=== PATIENT | male | born 1975 | race African-American/Black ===

== ENCOUNTER 2017-04-16 02:06 | Inpatient (IN) | payer OTHER ==
[~2017-04-16] VITALS: Ht 185.4 cm; Wt 97.5 kg
[2017-04-16] VITALS (7 sets, daily range): BP systolic 118–156; BP diastolic 60–84; PULSE 70–120; RESP 18–19; TEMP 96.4–97.8; O2SAT 99–100
[2017-04-16] MEDS ORDERED: SODIUM CHLOR 0.9% 1000 ML INJ 1,000 ML IV ONE ×3 (02:15→04:30)
[2017-04-16] MEDS ORDERED: MIDAZOLAM HCL 2 MG/2 ML VIAL IV PUSH ONE (02:15)
[2017-04-16] MEDS ORDERED: LORazepam 2 MG/ML VIAL IV PUSH ONE (02:15)
[2017-04-16 02:35] LABS: AUTOMATED NEUTROPHIL # 20.4 TH/MM3 (1.8-7.7); BASOPHIL # 0.1 TH/MM3 (0-0.2); BASOPHIL % 0.4 % (0.0-2.0); HEMATOCRIT 44.3 % (39.0-51.0); LYMPH % 3.8 % (9.0-44.0); LYMPHOCYTE # 0.9 TH/MM3 (1.0-4.8); MEAN CELL VOLUME 91.2 FL (80.0-100.0); MEAN CORPUSCULAR HEMOGLOBIN 31.5 PG (27.0-34.0); MEAN CORPUSCULAR HGB CONC 34.5 % (32.0-36.0); MONO % 7.5 % (0.0-8.0); NEUT % 88.3 % (16.0-70.0); PLATELET COUNT 385 TH/MM3 (150-450); RED BLOOD COUNT 4.85 MIL/MM3 (4.50-5.90); RED CELL DISTRIBUTION WIDTH 14.2 % (11.6-17.2); WHITE BLOOD COUNT 23.1 TH/MM3 (4.0-11.0)
[2017-04-16 02:44] LABS: HEMO FLAGS AUTO DIFF
[2017-04-16 02:48] LABS: ALT (GPT) 125 U/L (12-78); ANION GAP 15 MEQ/L (5-15); AST (GOT) 139 U/L (15-37); BICARBONATE 22.4 MEQ/L (21.0-32.0); BLOOD UREA NITROGEN 23 MG/DL (7-18); CHLORIDE 97 MEQ/L (98-107); GLOMERULAR FILTRATION RATE 20 ML/MIN (>89); POTASSIUM 4.6 MEQ/L (3.5-5.1); SODIUM (NA) 134 MEQ/L (136-145)
[2017-04-16 03:02] LABS: ALKALINE PHOSPHATASE 94 U/L (45-117); CREATINE KINASE 4136 U/L (39-308); TOTAL BILIRUBIN ADULT 1.8 MG/DL (0.2-1.0)
[2017-04-16 03:17] LABS: CKMB 20.7 NG/ML (0.5-3.6)
[2017-04-16 04:06] LABS: SCAN/DIFF AUTO DIFF CONFIRMED
--- NOTE | 2017-04-16 04:12 | PD ---
HPI Chief Complaint: OD/ Ingestion Time Seen by Provider: 02:14 Travel History International Travel<30 days: No Contact w/Intl Traveler<30days: No Traveled to known affect area: No History of Present Illness HPI Patient is a 41-year-old male brought in by police for medical clearance. Please a they found him in the middle of the street. He was apparently resisting arrest. He admits to using Namita tonight. He does not provide any other history. [facility] Past Medical History Medical History: Unable to Obtain Past Surgical History Surgical History: Unable to Obtain Social History Alcohol Use: No (UNKNOWN) Tobacco Use: No (UNKNOWN ) Substance Use: Yes (UNKNOWN ) Allergies-Medications (Allergen,Severity, Reaction): Coded Allergies: No Known Allergies (Unverified , 04/16/17) Review of Systems ROS Limitations: Intoxication Physical Exam Narrative GENERAL: Awake and alert, agitated. SKIN: Focused skin assessment warm/dry. Abrasion to the right palm. HEAD: Atraumatic. Normocephalic. EYES: Pupils equal and round and reactive. No scleral icterus. Bilateral conjunctival injection. ENT: Mucous membranes pink and moist. NECK: Trachea midline. No JVD. CARDIOVASCULAR: Tachycardia. No murmur appreciated. RESPIRATORY: No accessory muscle use. Clear to auscultation. Breath sounds equal bilaterally. GASTROINTESTINAL: Abdomen soft, non-tender, nondistended. MUSCULOSKELETAL: No obvious deformities. No clubbing. No cyanosis. No edema. NEUROLOGICAL: Awake and alert. No obvious cranial nerve deficits. Motor grossly within normal limits. Normal speech. PSYCHIATRIC: Appropriate mood and affect; insight and judgment normal. Data Data Last Documented VS Vital Signs Date Time Temp Pulse Resp B/P (MAP) Pulse Ox O2 Delivery O2 Flow Rate FiO2 04/16/17 04:02 107 18 99 04/16/17 02:40 97.8 156/84 (108) Orders Orders Iv Access Insert/Monitor (04/16/17 02:14) Complete Blood Count With Diff (04/16/17 02:14) Comprehensive Metabolic Panel (04/16/17 02:14) Creatine Kinase (Cpk) (04/16/17 02:14) Midazolam Inj (Versed Inj) (04/16/17 02:15) Lorazepam Inj (Ativan Inj) (04/16/17 02:15) Sodium Chlor 0.9% 1000 Ml Inj (Ns 1000 M (04/16/17 02:15) Drug Screen, Random Urine (04/16/17 02:30) CKMB (04/16/17 02:25) CKMB% (04/16/17 02:25) Sodium Chlor 0.9% 1000 Ml Inj (Ns 1000 M (04/16/17 03:45) Labs Laboratory Tests Test 04/16/17 02:25 04/16/17 02:35 White Blood Count 23.1 TH/MM3 Red Blood Count 4.85 MIL/MM3 Hemoglobin 15.3 GM/DL Hematocrit 44.3 % Mean Corpuscular Volume 91.2 FL Mean Corpuscular Hemoglobin 31.5 PG Mean Corpuscular Hemoglobin Concent 34.5 % Red Cell Distribution Width 14.2 % Platelet Count 385 TH/MM3 Mean Platelet Volume 6.6 FL Neutrophils (%) (Auto) 88.3 % Lymphocytes (%) (Auto) 3.8 % Monocytes (%) (Auto) 7.5 % Eosinophils (%) (Auto) 0.0 % Basophils (%) (Auto) 0.4 % Neutrophils # (Auto) 20.4 TH/MM3 Lymphocytes # (Auto) 0.9 TH/MM3 Monocytes # (Auto) 1.7 TH/MM3 Eosinophils # (Auto) 0.0 TH/MM3 Basophils # (Auto) 0.1 TH/MM3 CBC Comment AUTO DIFF Differential Comment AUTO DIFF CONFIRMED Blood Urea Nitrogen 23 MG/DL Creatinine 3.40 MG/DL Random Glucose 71 MG/DL Total Protein 9.9 GM/DL Albumin 5.1 GM/DL Calcium Level 10.1 MG/DL Alkaline Phosphatase 94 U/L Aspartate Amino Transf (AST/SGOT) 139 U/L Alanine Aminotransferase (ALT/SGPT) 125 U/L Total Bilirubin 1.8 MG/DL Sodium Level 134 MEQ/L Potassium Level 4.6 MEQ/L Chloride Level 97 MEQ/L Carbon Dioxide Level 22.4 MEQ/L Anion Gap 15 MEQ/L Estimat Glomerular Filtration Rate 20 ML/MIN Total Creatine Kinase 4136 U/L Creatine Kinase MB 20.7 NG/ML Creatine Kinase MB % 0.5 % Urine Opiates Screen NEG Urine Barbiturates Screen NEG Urine Amphetamines Screen NEG Urine Benzodiazepines Screen NEG Urine Cocaine Screen NEG Urine Cannabinoids Screen POS MDM Medical Decision Making Medical Screen Exam Complete: Yes Emergency Medical Condition: Yes Differential Diagnosis Rhabdomyolysis versus intoxication versus dehydration Narrative Course Patient is 41-year-old male brought in by police after he was found in the middle of the street. Admits to using Namita tonsamantha. Exam shows tachycardia. Patient given Ativan and Versed. IV established, labs sent. Labs concerning for CK over 4000 and a creatinine of 3.04. Patient given 2 L of IV fluids. He'll be admitted for rhabdomyolysis with acute kidney injury. Diagnosis Primary Impression: Rhabdomyolysis Qualified Codes: M62.82 - Rhabdomyolysis Additional Impression: DEANNA (acute kidney injury) Admitting Information Admitting Physician Requests: Admit Emelyn Vences MD Apr 16, 2017 04:12
[2017-04-16] MEDS ORDERED: LACTULOSE SYRUP 20 GM/30 ML CUP PO PRN (04:30)
[2017-04-16] MEDS ORDERED: ONDANSETRON HCL 4 MG/2 ML VIAL IVP PRN (04:30)
[2017-04-16] MEDS ORDERED: ACETAMINOPHEN 325 MG TAB PO PRN (04:30)
[2017-04-16] MEDS ORDERED: BISACODYL 10 MG SUPP RECTAL PRN (04:30)
[2017-04-16] MEDS ORDERED: SENNOSIDES 8.6 MG TAB PO PRN (04:30)
[2017-04-16] MEDS ORDERED: MAGNESIUM HYDROXIDE SUSP 30 ML CUP PO PRN (04:30)
[2017-04-16] MEDS: SODIUM CHLOR 0.9% 1000 ML INJ 1,000 ML IV SCH ×3 (04:30→23:01)
[2017-04-16] MEDS ORDERED: SODIUM CHLORIDE 0.9% FLUSH 10 ML FLUSH IV FLUSH PRN (04:30)
--- NOTE | 2017-04-16 04:47 | HHI.HP ---
HPI Service [facility] Primary Care Physician No Primary Care Physician Admission Diagnosis rhabdomyolisis with DEANNA Diagnoses: (1) Drug ingestion Diagnosis: Principal (2) Rhabdomyolysis Diagnosis: Principal (3) DEANNA (acute kidney injury) Diagnosis: Principal (4) Leukocytosis Diagnosis: Principal Travel History International Travel<30 Days: No Contact w/Intl Traveler <30 Da: No Traveled to Known Affected Are: No History of Present Illness This is a 41-year-old male with no apparent PMH was brought to the ER by Police after he was found standing in middle of the street after ingesting unknown drug. Pt resisting arrest, currently under Police Custody. Pt later admitted to using Namita. On arrival, BP 156/84, HR 120, O2 sat 99% on RA, Afebrile. WBC 23.1. Creatinine 3.40, no previous labs for comparison. LFTs mildly elevated. CPK 4136. Urine Drug Screen positive for Marijuana. Significant agitation while in ER requiring Ativan/Versed. Review of Systems Except as stated in HPI: all other systems reviewed are Neg ROS: Unable to obtain as patient uncooperative. Past Family Social History Past Medical History PMH: Unknown Past Surgical History PAST SURGICAL HISTORY: Unknown Allergies: Coded Allergies: No Known Allergies (Unverified , 04/16/17) Family History PAST FAMILY HISTORY: Unknown Social History PAST SOCIAL HISTORY: Unknown Physical Exam Vital Signs Vital Signs Date Time Temp Pulse Resp B/P (MAP) Pulse Ox O2 Delivery O2 Flow Rate FiO2 04/16/17 04:02 107 18 99 04/16/17 02:40 97.8 120 18 156/84 (108) 99 Physical Exam PE: GENERAL: Middle-aged white male in restraints. Police at bedside. HEENT: PERRLA, EOMI. No scleral icterus or conjunctival pallor. No lid lag or facial droop. CARDIOVASCULAR: Regular rate and rhythm. No obvious murmurs to auscultation. No chest tenderness to palpation. RESPIRATORY: No obvious rhonchi or wheezing. Clear to auscultation. Breath sounds equal bilaterally. GASTROINTESTINAL: Abdomen soft, non-tender, nondistended. BS normal. MUSCULOSKELETAL: Extremities without clubbing, cyanosis, or edema. No obvious deformities. NEUROLOGICAL: Awake, alert and oriented x4. No focal neurologic deficits. Moving both upper and lower extremities spontaneously. Laboratory Laboratory Tests Test 04/16/17 02:25 04/16/17 02:35 White Blood Count 23.1 Red Blood Count 4.85 Hemoglobin 15.3 Hematocrit 44.3 Mean Corpuscular Volume 91.2 Mean Corpuscular Hemoglobin 31.5 Mean Corpuscular Hemoglobin Concent 34.5 Red Cell Distribution Width 14.2 Platelet Count 385 Mean Platelet Volume 6.6 Neutrophils (%) (Auto) 88.3 Lymphocytes (%) (Auto) 3.8 Monocytes (%) (Auto) 7.5 Eosinophils (%) (Auto) 0.0 Basophils (%) (Auto) 0.4 Neutrophils # (Auto) 20.4 Lymphocytes # (Auto) 0.9 Monocytes # (Auto) 1.7 Eosinophils # (Auto) 0.0 Basophils # (Auto) 0.1 CBC Comment AUTO DIFF Differential Comment AUTO DIFF CONFIRMED Blood Urea Nitrogen 23 Creatinine 3.40 Random Glucose 71 Total Protein 9.9 Albumin 5.1 Calcium Level 10.1 Alkaline Phosphatase 94 Aspartate Amino Transf (AST/SGOT) 139 Alanine Aminotransferase (ALT/SGPT) 125 Total Bilirubin 1.8 Sodium Level 134 Potassium Level 4.6 Chloride Level 97 Carbon Dioxide Level 22.4 Anion Gap 15 Estimat Glomerular Filtration Rate 20 Total Creatine Kinase 4136 Creatine Kinase MB 20.7 Creatine Kinase MB % 0.5 Urine Opiates Screen NEG Urine Barbiturates Screen NEG Urine Amphetamines Screen NEG Urine Benzodiazepines Screen NEG Urine Cocaine Screen NEG Urine Cannabinoids Screen POS Result Diagram: 04/16/1722404/16/17224 Caprini VTE Risk Assessment Caprini VTE Risk Assessment: No/Low Risk (score <= 1) Caprini Risk Assessment Model Point Value = 1 Point Value = 2 Point Value = 3 Point Value = 5 Age 41-60 Minor surgery BMI > 25 kg/m2 Swollen legs Varicose veins or History of unexplained or recurrent spontaneous Oral contraceptives or hormone replacement Sepsis (< 1 month) Serious lung disease, including pneumonia (< 1 month) Abnormal pulmonary function Acute myocardial infarction Congestive heart failure (< 1 month) History of inflammatory bowel disease Medical patient at bed rest Age 61-74 Arthroscopic surgery Major open surgery (> 45 min) Laparoscopic surgery (> 45 min) Malignancy Confined to bed (> 72 hours) Immobilizing plaster cast Central venous access Age >= 75 History of VTE Family history of VTE Factor V Leiden Prothrombin [id number] Lupus anticoagulant Anticardiolipin antibodies Elevated serum homocysteine Heparin-induced thrombocytopenia Other congenital or acquired thrombophilia Stroke (< 1 month) Elective arthroplasty Hip, pelvis, or leg fracture Acute spinal cord injury (< 1 month) Prophylaxis Regimen Total Risk Factor Score Risk Level Prophylaxis Regimen 0-1 Low Early ambulation 2 Moderate Order ONE of the following: *Sequential Compression Device (SCD) *Heparin 5000 units SQ BID 3-4 Higher Order ONE of the following medications: *Heparin 5000 units SQ TID *Enoxaparin/Lovenox 40 mg SQ daily (WT < 150 kg, CrCl > 30 mL/min) *Enoxaparin/Lovenox 30 mg SQ daily (WT < 150 kg, CrCl > 10-29 mL/min) *Enoxaparin/Lovenox 30 mg SQ BID (WT < 150 kg, CrCl > 30 mL/min) AND/OR *Sequential Compression Device (SCD) 5 or more Highest Order ONE of the following medications: *Heparin 5000 units SQ TID (Preferred with Epidurals) *Enoxaparin/Lovenox 40 mg SQ daily (WT < 150 kg, CrCl > 30 mL/min) *Enoxaparin/Lovenox 30 mg SQ daily (WT < 150 kg, CrCl > 10-29 mL/min) *Enoxaparin/Lovenox 30 mg SQ BID (WT < 150 kg, CrCl > 30 mL/min) AND *Sequential Compression Device (SCD) Assessment and Plan Problem List: (1) Drug ingestion ICD Code: T50.901A - Poisoning by unspecified drugs, medicaments and biological substances, accidental (unintentional), initial encounter (2) Rhabdomyolysis ICD Code: M62.82 - Rhabdomyolysis Status: Acute (3) DEANNA (acute kidney injury) ICD Code: N17.9 - Acute kidney failure, unspecified Status: Acute (4) Leukocytosis ICD Code: D72.829 - Elevated white blood cell count, unspecified Assessment and Plan A/P: 1. Drug Ingestion: admits to ingesting Namita, unknown quantity, currently in Police Custody after resisting arrest. Significant agitation on arrival, s/p Ativan/Versed. Continue Ativan prn. Restraints as needed. 2. Rhabdomyolysis: CPK 4136, aggressive IVF for hydration, repeat CPK for trend. 3. DEANNA: Creatinine 3.40, no previous labs for comparison, presumably new, related to drug ingestion. IVF as above. Check U/a. 4. Leukocytosis: WBC 23.1, likely due to drug ingestion, no obvious infection noted. Afebrile. Check U/a. Repeat labs in am. 5. DVT Prophylaxis: SCD/Teds. 6. Social work for d/c planning as needed. 7. Case discussed w/ ER physician at length. Physician Certification 2 Midnight Certification Type: Admission for Inpatient Services Order for Inpatient Services The services are ordered in accordance with Medicare regulations or non- Medicare payer requirements, as applicable. In the case of services not specified as inpatient-only, they are appropriately provided as inpatient services in accordance with the 2-midnight benchmark. Estimated LOS (days): 2 days is the estimated time the patient will need to remain in the hospital, assuming treatment plan goals are met and no additional complications. Post-Hospital Plan: Not yet determined Problem Qualifiers (1) Rhabdomyolysis: Qualified Codes: M62.82 - Rhabdomyolysis Amira Howard MD Apr 16, 2017 04:47
[2017-04-16] MEDS: LORazepam 2 MG/ML VIAL IV PUSH PRN ×2 (05:04→10:53)
[2017-04-16 05:12] LABS: BACTERIA, URINE FEW /hpf; BLOOD, URINE LARGE (NEG); COMMENT (UR) CULTURE INDICATED; CULTURE IF INDICATED CULTURE INDICATED; GLUCOSE,URINE NEG (NEG); GRANULAR CAST, URINE 15 /lpf; HYALINE CAST, URINE 124 /lpf (RARE); KETONE, URINE TRACE mg/dL (NEG); MUCUS URINE FEW /lpf (OCC); NITRITE,URINE NEG (NEG); PH, URINE 5.5 (5.0-8.5); SQUAMOUS EPITHELIAL CELL URINE 3 /hpf (0-5); URINE COLOR YELLOW (YELLW/STRAW)
[2017-04-16] MEDS: DOCUSATE SODIUM 50 MG/SENNA 8.6 MG TAB PO SCH ×2 (09:12→21:00)
[2017-04-16] MEDS: SODIUM CHLORIDE 0.9% FLUSH 10 ML FLUSH IV FLUSH SCH ×2 (09:13→21:00)
[2017-04-16] MEDS ORDERED: HALOPERIDOL LACTATE 5 MG/ML AMP IM ONE (11:30)
[2017-04-16] MEDS ORDERED: HALOPERIDOL LACTATE 5 MG/ML AMP IM PRN (11:30)
--- NOTE | 2017-04-16 11:34 | HHI.PR ---
Subjective Remarks Follow-up for rhabdomyolysis, acute kidney injury, unknown drug ingestion. Patient is handcuffed to the bed on his right hand. He is sitting on the floor. He remains confused and looking around. Occasionally answers questions appropriately. Objective Vitals Vital Signs Date Time Temp Pulse Resp B/P (MAP) Pulse Ox O2 Delivery O2 Flow Rate FiO2 04/16/17 08:00 96.4 84 18 129/70 (89) 100 04/16/17 05:40 97.3 85 18 140/79 (99) 100 04/16/17 04:02 107 18 99 04/16/17 02:40 97.8 120 18 156/84 (108) 99 I/O 04/15/17 04/15/17 04/15/17 04/16/17 04/16/17 04/16/17 07:00 15:00 23:00 07:00 15:00 23:00 Intake Total 1250 ml Output Total 250 ml Balance 1000 ml Intake Oral 0 ml IV Total 1250 ml Output Urine Total 250 ml # Voids 1 # Bowel Movements 0 Result Diagram: 04/16/1722404/16/17224 Objective Remarks GENERAL: Alert, anxious and confused. SKIN: Warm and dry. HEAD: Normocephalic. EYES: No scleral icterus. No injection or drainage. NECK: Supple, trachea midline. No JVD or lymphadenopathy. CARDIOVASCULAR: Regular rate and rhythm without murmurs, gallops, or rubs. RESPIRATORY: Breath sounds equal bilaterally. No accessory muscle use. GASTROINTESTINAL: Abdomen soft, non-tender, nondistended. MUSCULOSKELETAL: No cyanosis, or edema. BACK: Nontender without obvious deformity. No CVA tenderness. Procedures None A/P Problem List: (1) Drug ingestion ICD Code: T50.901A - Poisoning by unspecified drugs, medicaments and biological substances, accidental (unintentional), initial encounter (2) Rhabdomyolysis ICD Code: M62.82 - Rhabdomyolysis Status: Acute (3) DEANNA (acute kidney injury) ICD Code: N17.9 - Acute kidney failure, unspecified Status: Acute Assessment and Plan This is a 41-year-old male with no apparent PMH was brought to the ER by Police after he was found standing in middle of the street after ingesting unknown drug , later admitted using Namita. On arrival, BP 156/84, HR 120, O2 sat 99% on RA, Afebrile. WBC 23.1. Creatinine 3.40, no previous labs for comparison. LFTs mildly elevated. CPK 4136. Urine Drug Screen positive for Marijuana. - Acute illicit drug ingestion - Probably Namita. - Will use Ativan, Haldol for acute agitation. - Rhabdomyolysis - Acute kidney injury with creatinine 3.4. - CPK 4136. - Will increase fluid from 150cc/hour to 300cc/hour. - We do not have any baseline creatinine but patient denies any existing kidney disease. - Will re-check BMP and total CPK - Patient will likely benefit from in-patient care today. - Cannot be discharge without a clear downward trend of Creatinine and CPK. Full code. SCDs. Problem Qualifiers (1) Rhabdomyolysis: Qualified Codes: M62.82 - Rhabdomyolysis Leatha Pritchett DO Apr 16, 2017 11:34 am
[2017-04-16 13:50] LABS: BICARBONATE 23.2 MEQ/L (21.0-32.0)
[2017-04-16 13:51] LABS: POTASSIUM 4.7 MEQ/L (3.5-5.1)
[2017-04-16 15:31] LABS: CKMB 85.8 NG/ML (0.5-3.6)
[2017-04-16 21:19] LABS: CKMB 91.5 NG/ML (0.5-3.6)
[2017-04-17 00:59] VITALS: BP 116/62; PULSE 74; RESP 18; TEMP 97.6; O2SAT 99
[2017-04-17] MEDS: SODIUM CHLOR 0.9% 1000 ML INJ 1,000 ML IV SCH ×6 (02:21→23:08)
[2017-04-17] MEDS: LORazepam 2 MG/ML VIAL IV PUSH PRN ×2 (04:41→23:08)
[2017-04-17 07:36] LABS: BASOPHIL % 0.3 % (0.0-2.0); EOSINOPHIL % 0.4 % (0.0-4.0); HEMATOCRIT 37.3 % (39.0-51.0); HEMO FLAGS DIFF FINAL; LYMPH % 24.3 % (9.0-44.0); LYMPHOCYTE # 1.8 TH/MM3 (1.0-4.8); MEAN CELL VOLUME 93.6 FL (80.0-100.0); MEAN CORPUSCULAR HEMOGLOBIN 31.6 PG (27.0-34.0); MEAN CORPUSCULAR HGB CONC 33.8 % (32.0-36.0); MONO % 8.7 % (0.0-8.0); NEUT % 66.3 % (16.0-70.0); PLATELET COUNT 231 TH/MM3 (150-450); RED BLOOD COUNT 3.99 MIL/MM3 (4.50-5.90); RED CELL DISTRIBUTION WIDTH 14.2 % (11.6-17.2); WHITE BLOOD COUNT 7.5 TH/MM3 (4.0-11.0)
[2017-04-17 08:00] VITALS: BP 125/75; PULSE 57; RESP 18; TEMP 96.7; O2SAT 100
[2017-04-17 08:14] LABS: ALT (GPT) 101 U/L (12-78); ANION GAP 9 MEQ/L (5-15); AST (GOT) 394 U/L (15-37); BICARBONATE 21.1 MEQ/L (21.0-32.0); BLOOD UREA NITROGEN 14 MG/DL (7-18); CHLORIDE 111 MEQ/L (98-107); GLOMERULAR FILTRATION RATE 82 ML/MIN (>89); POTASSIUM 4.3 MEQ/L (3.5-5.1); SODIUM (NA) 141 MEQ/L (136-145)
[2017-04-17 08:37] LABS: ALKALINE PHOSPHATASE 55 U/L (45-117); TOTAL BILIRUBIN ADULT 0.9 MG/DL (0.2-1.0)
[2017-04-17] MEDS: DOCUSATE SODIUM 50 MG/SENNA 8.6 MG TAB PO SCH ×2 (08:48→23:08)
[2017-04-17] MEDS: SODIUM CHLORIDE 0.9% FLUSH 10 ML FLUSH IV FLUSH SCH ×2 (08:48→21:00)
[2017-04-17 09:01] LABS: CREATINE KINASE 16219 U/L (39-308)
[2017-04-17 09:23] LABS: CKMB 64.2 NG/ML (0.5-3.6)
[2017-04-17 12:00] VITALS: BP 114/65; PULSE 67; RESP 18; TEMP 97.7; O2SAT 100
[2017-04-17] MEDS ORDERED: traMADol HCL 50 MG TAB PO PRN (13:00)
--- NOTE | 2017-04-17 13:28 | HHI.PR ---
Subjective Remarks Follow-up for rhabdomyolysis, acute kidney injury, unknown drug ingestion. Patient is resting in bed. He complains of chronic pain from previous injuries. No fever, chills. He is tolerating diet well. He is more coherent today. Objective Vitals Vital Signs Date Time Temp Pulse Resp B/P (MAP) Pulse Ox O2 Delivery O2 Flow Rate FiO2 04/17/17 12:00 97.7 67 18 114/65 (81) 100 04/17/17 08:00 96.7 57 18 125/75 (92) 100 04/17/17 00:59 97.6 74 18 116/62 (80) 99 04/16/17 20:59 97.2 70 18 118/67 (84) 100 04/16/17 16:00 97.1 75 19 135/64 (87) 99 I/O 04/16/17 04/16/17 04/16/17 04/17/17 04/17/17 04/17/17 07:00 15:00 23:00 07:00 15:00 23:00 Intake Total 1250 ml 480 ml 3818 ml 360 ml Output Total 250 ml 850 ml 750 ml Balance 1000 ml -370 ml 3818 ml -390 ml Intake Oral 0 ml 480 ml 480 ml 360 ml IV Total 1250 ml 3338 ml Output Urine Total 250 ml 850 ml 750 ml # Voids 1 2 2 # Bowel Movements 0 0 0 0 Result Diagram: 04/17/17 0656 04/17/1756 Objective Remarks GENERAL: Alert, coherent today. SKIN: Warm and dry. HEAD: Normocephalic. EYES: No scleral icterus. No injection or drainage. NECK: Supple, trachea midline. No JVD or lymphadenopathy. CARDIOVASCULAR: Regular rate and rhythm without murmurs, gallops, or rubs. RESPIRATORY: Breath sounds equal bilaterally. No accessory muscle use. GASTROINTESTINAL: Abdomen soft, non-tender, nondistended. MUSCULOSKELETAL: No cyanosis, or edema. BACK: Nontender without obvious deformity. No CVA tenderness. Procedures None A/P Problem List: (1) Drug ingestion ICD Code: T50.901A - Poisoning by unspecified drugs, medicaments and biological substances, accidental (unintentional), initial encounter (2) Rhabdomyolysis ICD Code: M62.82 - Rhabdomyolysis Status: Acute (3) DEANNA (acute kidney injury) ICD Code: N17.9 - Acute kidney failure, unspecified Status: Acute Assessment and Plan This is a 41-year-old male with no apparent PMH was brought to the ER by Police after he was found standing in middle of the street after ingesting unknown drug , later admitted using Namita. On arrival, BP 156/84, HR 120, O2 sat 99% on RA, Afebrile. WBC 23.1. Creatinine 3.40, no previous labs for comparison. LFTs mildly elevated. CPK 4136. Urine Drug Screen positive for Marijuana. - Acute illicit drug ingestion - Probably Namita. - Will use Ativan, Haldol for acute agitation. - Rhabdomyolysis - Acute kidney injury with creatinine 3.4. - CPK 4136 --> 65462 --> 87725 --> 29180. - Continue NS 300cc/hour. - Creatinine improved from 3.4 --> 1.19. - AM BMP and total CPK - Once CPK falls below 5000, patient can be discharged from the hospital. chronic pain - Will start patient on Tramadol PRN and continue Acetaminophen PRN Full code. SCDs. Problem Qualifiers (1) Rhabdomyolysis: Qualified Codes: M62.82 - Rhabdomyolysis Leatha Pritchett DO Apr 17, 2017 1:28 pm
[2017-04-17 20:25] VITALS: BP 121/58; PULSE 64; RESP 17; TEMP 96.5; O2SAT 100
[2017-04-17 23:00] VITALS: BP 130/73; PULSE 56; RESP 16; TEMP 97; O2SAT 99
[2017-04-18] MEDS: SODIUM CHLOR 0.9% 1000 ML INJ 1,000 ML IV SCH ×7 (02:27→20:52)
[2017-04-18 04:41] VITALS: BP 129/74; PULSE 56; RESP 16; TEMP 97.4; O2SAT 98
[2017-04-18 08:00] VITALS: BP 136/81; PULSE 54; RESP 18; TEMP 95.7; O2SAT 100
[2017-04-18 08:12] LABS: BICARBONATE 23.8 MEQ/L (21.0-32.0)
[2017-04-18] MEDS: LORazepam 2 MG/ML VIAL IV PUSH PRN ×2 (08:58→20:53)
[2017-04-18] MEDS: DOCUSATE SODIUM 50 MG/SENNA 8.6 MG TAB PO SCH ×4 (08:58→20:54)
[2017-04-18] MEDS: SODIUM CHLORIDE 0.9% FLUSH 10 ML FLUSH IV FLUSH SCH ×2 (09:07→20:52)
--- NOTE | 2017-04-18 09:38 | HHI.PR ---
Subjective Remarks Patient stable in his bedroom, followed due to Rhabdomyolysis, Acute kidney injury, unknown drug ingestion seen in the presence of [employer], explained we will follow CK levels if trending down but below 5000 will be discharge. no nausea, vomit or diarrhea, he wants to go. Objective Vital Signs Date Time Temp Pulse Resp B/P (MAP) Pulse Ox O2 Delivery O2 Flow Rate FiO2 04/18/17 04:41 97.4 56 16 129/74 (92) 98 04/17/17 23:00 97.0 56 16 130/73 (92) 99 04/17/17 20:25 96.5 64 17 121/58 (79) 100 04/17/17 18:59 Room Air 04/17/17 12:00 97.7 67 18 114/65 (81) 100 I/O 04/17/17 04/17/17 04/17/17 04/18/17 04/18/17 04/18/17 07:00 15:00 23:00 07:00 15:00 23:00 Intake Total 360 ml 840 ml 360 ml 4218 ml Output Total 750 ml 800 ml 1000 ml 1200 ml Balance -390 ml 40 ml -640 ml 3018 ml Intake Oral 360 ml 840 ml 360 ml 360 ml IV Total 3858 ml Output Urine Total 750 ml 800 ml 1000 ml 1200 ml # Voids 2 2 # Bowel Movements 0 0 0 0 Result Diagram: 04/17/17 0656 04/18/17 0706 Imaging No new imaging studies. Procedures None Other Results Laboratory Tests Test 04/16/17 02:35 04/17/17 06:56 04/18/17 07:06 Urine Color YELLOW Urine Turbidity CLOUDY Urine pH 5.5 Urine Specific [place] 1.017 Urine Protein 100 mg/dL Urine Glucose (UA) NEG mg/dL Urine Ketones TRACE mg/dL Urine Occult Blood LARGE Urine Nitrite NEG Urine Bilirubin NEG Urine Urobilinogen 2.0 MG/DL Urine Leukocyte Esterase NEG Urine RBC 9 /hpf Urine WBC 11 /hpf Urine WBC Clumps RARE Urine Squamous Epithelial Cells 3 /hpf Urine Amorphous Sediment RARE Urine Bacteria FEW /hpf Urine Hyaline Casts 124 /lpf Urine Granular Casts 15 /lpf Urine Mucus FEW /lpf Microscopic Urinalysis Comment CULTURE INDICATED Urine Opiates Screen NEG Urine Barbiturates Screen NEG Urine Amphetamines Screen NEG Urine Benzodiazepines Screen NEG Urine Cocaine Screen NEG Urine Cannabinoids Screen POS White Blood Count 7.5 TH/MM3 Red Blood Count 3.99 MIL/MM3 Hemoglobin 12.6 GM/DL Hematocrit 37.3 % Mean Corpuscular Volume 93.6 FL Mean Corpuscular Hemoglobin 31.6 PG Mean Corpuscular Hemoglobin Concent 33.8 % Red Cell Distribution Width 14.2 % Platelet Count 231 TH/MM3 Mean Platelet Volume 7.0 FL Neutrophils (%) (Auto) 66.3 % Lymphocytes (%) (Auto) 24.3 % Monocytes (%) (Auto) 8.7 % Eosinophils (%) (Auto) 0.4 % Basophils (%) (Auto) 0.3 % Neutrophils # (Auto) 5.0 TH/MM3 Lymphocytes # (Auto) 1.8 TH/MM3 Monocytes # (Auto) 0.7 TH/MM3 Eosinophils # (Auto) 0.0 TH/MM3 Basophils # (Auto) 0.0 TH/MM3 CBC Comment DIFF FINAL Differential Comment Blood Urea Nitrogen 14 MG/DL 8 MG/DL Creatinine 1.19 MG/DL 0.99 MG/DL Random Glucose 83 MG/DL 80 MG/DL Total Protein 6.4 GM/DL Albumin 2.9 GM/DL Calcium Level 8.0 MG/DL 7.8 MG/DL Alkaline Phosphatase 55 U/L Aspartate Amino Transf (AST/SGOT) 394 U/L Alanine Aminotransferase (ALT/SGPT) 101 U/L Total Bilirubin 0.9 MG/DL Sodium Level 141 MEQ/L 141 MEQ/L Potassium Level 4.3 MEQ/L 4.0 MEQ/L Chloride Level 111 MEQ/L 111 MEQ/L Carbon Dioxide Level 21.1 MEQ/L 23.8 MEQ/L Creatine Kinase MB % 0.4 % Anion Gap 6 MEQ/L Estimat Glomerular Filtration Rate 102 ML/MIN Total Creatine Kinase 7838 U/L Objective Remarks GENERAL: Alert, oriented x 3, no acute distress. SKIN: Warm and dry. HEAD: Normocephalic. EYES: No scleral icterus. No injection or drainage. NECK: Supple, trachea midline. No JVD or lymphadenopathy. CARDIOVASCULAR: Regular rate and rhythm without murmurs, gallops, or rubs. RESPIRATORY: Breath sounds equal bilaterally. No accessory muscle use. GASTROINTESTINAL: Abdomen soft, non-tender, nondistended. MUSCULOSKELETAL: No cyanosis, or edema. BACK: Nontender without obvious deformity. No CVA tenderness. Medications and IVs Current Medications Medications (Trade) Dose Ordered Sig/Tiara Route Start Time Stop Time Status Last Admin (NS Flush) 2 ml UNSCH PRN IV FLUSH 04/16/17 04:30 (NS Flush) 2 ml BID IV FLUSH 04/16/17 09:00 04/17/17 21:00 (Zofran Inj) 4 mg Q6H PRN IVP 04/16/17 04:30 (Tylenol) 650 mg Q6H PRN PO 04/16/17 04:30 04/16/17 09:08 (Martine-Colace) 1 tab BID PO 04/16/17 09:00 04/17/17 23:08 (Milk Of Magnesia Liq) 30 ml Q12H PRN PO 04/16/17 04:30 (Senokot) 17.2 mg Q12H PRN PO 04/16/17 04:30 (Dulcolax Supp) 10 mg DAILY PRN RECTAL 04/16/17 04:30 (Lactulose Liq) 30 ml DAILY PRN PO 04/16/17 04:30 (Ativan Inj) 1 mg Q2H PRN IV PUSH 04/16/17 04:30 04/18/17 08:58 Sodium Chloride 1,000 ml @ 300 mls/hr Q3H20M IV 04/16/17 04:30 04/18/17 08:52 (Haldol Inj) 2 mg Q6H PRN IM 04/16/17 11:30 (Ultram) 50 mg Q8H PRN PO 04/17/17 13:00 04/17/17 12:42 A/P Assessment and Plan This is a 41-year-old male with no apparent PMH was brought to the ER by Police after he was found standing in middle of the street after ingesting unknown drug , later admitted using Namita. On arrival, BP 156/84, HR 120, O2 sat 99% on RA, Afebrile. WBC 23.1. Creatinine 3.40, no previous labs for comparison. LFTs mildly elevated. CPK 4136. Urine Drug Screen positive for Marijuana. - Acute illicit drug ingestion - Probably Namita. - Will use Ativan, Haldol for acute agitation. - Rhabdomyolysis his CK level is improving from 4136 --> 84591 --> --> 17259.->0337->9110 taken in the afternoon continue present care - Acute kidney injury with creatinine 3.4. today 0.99 Improved chronic pain - Continue on Tramadol PRN and continue Acetaminophen PRN Full code. SCDs. Discharge Planning Once CK level below 5000 discharge [place] MD Apr 18, 2017 9:38 am
[2017-04-18 11:40] LABS: CKMB 18.7 NG/ML (0.5-3.6)
[2017-04-18 12:00] VITALS: BP 153/91; PULSE 55; RESP 18; TEMP 97; O2SAT 100
[2017-04-18] MEDS ORDERED: SODIUM CHLORID 0.9% 500 ML INJ 500 ML IV ONE (13:00)
[2017-04-18 15:33] VITALS: BP 155/91; PULSE 58; RESP 18; TEMP 95.9; O2SAT 100
[2017-04-18 18:43] LABS: CKMB 15.5 NG/ML (0.5-3.6)
[2017-04-18 20:05] VITALS: BP 150/82; PULSE 63; RESP 16; TEMP 98.6; O2SAT 100
[2017-04-19 00:05] VITALS: BP 148/81; PULSE 57; RESP 16; TEMP 97.6; O2SAT 98
[2017-04-19] MEDS: SODIUM CHLOR 0.9% 1000 ML INJ 1,000 ML IV SCH ×8 (00:13→22:30)
[2017-04-19 07:19] LABS: BICARBONATE 24.3 MEQ/L (21.0-32.0); POTASSIUM 3.7 MEQ/L (3.5-5.1)
[2017-04-19 07:39] VITALS: BP 140/71; PULSE 52; RESP 18; TEMP 96.7; O2SAT 97
[2017-04-19] MEDS: SODIUM CHLORIDE 0.9% FLUSH 10 ML FLUSH IV FLUSH SCH ×2 (07:46→21:01)
[2017-04-19] MEDS: LORazepam 2 MG/ML VIAL IV PUSH PRN ×3 (07:46→21:02)
[2017-04-19 07:49] LABS: CKMB 9.2 NG/ML (0.5-3.6)
[2017-04-19] MEDS: DOCUSATE SODIUM 50 MG/SENNA 8.6 MG TAB PO SCH ×2 (09:00→21:02)
[2017-04-19 11:46] VITALS: BP 129/76; PULSE 50; RESP 18; TEMP 97.7; O2SAT 100
--- NOTE | 2017-04-19 14:24 | HHI.PR ---
Subjective Remarks Patient stable in his bedroom, followed due to Rhabdomyolysis, Acute kidney injury, unknown drug ingestion seen in the presence of [employer], explained we will follow CK levels if trending down but below 5000 will be discharge. no nausea, vomit or diarrhea, he wants to go. Seen in his bedroom and discussed with nurse Miss Garrett will perform again today a new CPK level at 1600 hours if below 5000 will discharge Home. No nausea, vomit or diarrhea the patient wants to go now. Objective Vital Signs Date Time Temp Pulse Resp B/P (MAP) Pulse Ox O2 Delivery O2 Flow Rate FiO2 04/19/17 11:46 97.7 50 18 129/76 (93) 100 04/19/17 07:39 96.7 52 18 140/71 (94) 97 04/19/17 01:52 Room Air 04/19/17 00:05 97.6 57 16 148/81 (103) 98 04/18/17 20:05 98.6 63 16 150/82 (104) 100 04/18/17 15:33 95.9 58 18 155/91 (112) 100 I/O 04/18/17 04/18/17 04/18/17 04/19/17 04/19/17 04/19/17 07:00 15:00 23:00 07:00 15:00 23:00 Intake Total 4218 ml 720 ml 720 ml 7271 ml Output Total 1200 ml 1000 ml 2000 ml Balance 3018 ml -280 ml -1280 ml 7271 ml Intake Oral 360 ml 720 ml 720 ml 480 ml IV Total 3858 ml 6791 ml Output Urine Total 1200 ml 1000 ml 2000 ml # Voids 3 # Bowel Movements 0 1 1 0 Result Diagram: 04/17/17 0656 04/19/17 0616 Imaging No imaging studies performed. Procedures None Other Results Laboratory Tests Test 04/16/17 02:35 04/17/17 06:56 04/19/17 06:16 Urine Color YELLOW Urine Turbidity CLOUDY Urine pH 5.5 Urine Specific [place] 1.017 Urine Protein 100 mg/dL Urine Glucose (UA) NEG mg/dL Urine Ketones TRACE mg/dL Urine Occult Blood LARGE Urine Nitrite NEG Urine Bilirubin NEG Urine Urobilinogen 2.0 MG/DL Urine Leukocyte Esterase NEG Urine RBC 9 /hpf Urine WBC 11 /hpf Urine WBC Clumps RARE Urine Squamous Epithelial Cells 3 /hpf Urine Amorphous Sediment RARE Urine Bacteria FEW /hpf Urine Hyaline Casts 124 /lpf Urine Granular Casts 15 /lpf Urine Mucus FEW /lpf Microscopic Urinalysis Comment CULTURE INDICATED Urine Opiates Screen NEG Urine Barbiturates Screen NEG Urine Amphetamines Screen NEG Urine Benzodiazepines Screen NEG Urine Cocaine Screen NEG Urine Cannabinoids Screen POS White Blood Count 7.5 TH/MM3 Red Blood Count 3.99 MIL/MM3 Hemoglobin 12.6 GM/DL Hematocrit 37.3 % Mean Corpuscular Volume 93.6 FL Mean Corpuscular Hemoglobin 31.6 PG Mean Corpuscular Hemoglobin Concent 33.8 % Red Cell Distribution Width 14.2 % Platelet Count 231 TH/MM3 Mean Platelet Volume 7.0 FL Neutrophils (%) (Auto) 66.3 % Lymphocytes (%) (Auto) 24.3 % Monocytes (%) (Auto) 8.7 % Eosinophils (%) (Auto) 0.4 % Basophils (%) (Auto) 0.3 % Neutrophils # (Auto) 5.0 TH/MM3 Lymphocytes # (Auto) 1.8 TH/MM3 Monocytes # (Auto) 0.7 TH/MM3 Eosinophils # (Auto) 0.0 TH/MM3 Basophils # (Auto) 0.0 TH/MM3 CBC Comment DIFF FINAL Differential Comment Blood Urea Nitrogen 14 MG/DL 10 MG/DL Creatinine 1.19 MG/DL 1.00 MG/DL Random Glucose 83 MG/DL 85 MG/DL Total Protein 6.4 GM/DL Albumin 2.9 GM/DL Calcium Level 8.0 MG/DL 8.0 MG/DL Alkaline Phosphatase 55 U/L Aspartate Amino Transf (AST/SGOT) 394 U/L Alanine Aminotransferase (ALT/SGPT) 101 U/L Total Bilirubin 0.9 MG/DL Sodium Level 141 MEQ/L 141 MEQ/L Potassium Level 4.3 MEQ/L 3.7 MEQ/L Chloride Level 111 MEQ/L 109 MEQ/L Carbon Dioxide Level 21.1 MEQ/L 24.3 MEQ/L Anion Gap 8 MEQ/L Estimat Glomerular Filtration Rate 101 ML/MIN Total Creatine Kinase 6252 U/L Creatine Kinase MB 9.2 NG/ML Creatine Kinase MB % 0.1 % Objective Remarks GENERAL: Alert, oriented x 3, no acute distress. SKIN: Warm and dry. HEAD: Normocephalic. EYES: No scleral icterus. No injection or drainage. NECK: Supple, trachea midline. No JVD or lymphadenopathy. CARDIOVASCULAR: Regular rate and rhythm without murmurs, gallops, or rubs. RESPIRATORY: Breath sounds equal bilaterally. No accessory muscle use. GASTROINTESTINAL: Abdomen soft, non-tender, nondistended. MUSCULOSKELETAL: No cyanosis, or edema. BACK: Nontender without obvious deformity. No CVA tenderness. Medications and IVs Current Medications Medications (Trade) Dose Ordered Sig/Tiara Route Start Time Stop Time Status Last Admin (NS Flush) 2 ml UNSCH PRN IV FLUSH 04/16/17 04:30 (NS Flush) 2 ml BID IV FLUSH 04/16/17 09:00 04/19/17 07:46 (Zofran Inj) 4 mg Q6H PRN IVP 04/16/17 04:30 (Tylenol) 650 mg Q6H PRN PO 04/16/17 04:30 04/16/17 09:08 (Martine-Colace) 1 tab BID PO 04/16/17 09:00 04/17/17 23:08 (Milk Of Magnesia Liq) 30 ml Q12H PRN PO 04/16/17 04:30 (Senokot) 17.2 mg Q12H PRN PO 04/16/17 04:30 (Dulcolax Supp) 10 mg DAILY PRN RECTAL 04/16/17 04:30 (Lactulose Liq) 30 ml DAILY PRN PO 04/16/17 04:30 (Ativan Inj) 1 mg Q2H PRN IV PUSH 04/16/17 04:30 04/19/17 07:46 Sodium Chloride 1,000 ml @ 300 mls/hr Q3H20M IV 04/16/17 04:30 04/19/17 07:47 (Haldol Inj) 2 mg Q6H PRN IM 04/16/17 11:30 (Ultram) 50 mg Q8H PRN PO 04/17/17 13:00 04/17/17 12:42 A/P Assessment and Plan This is a 41-year-old male with no apparent PMH was brought to the ER by Police after he was found standing in middle of the street after ingesting unknown drug , later admitted using Namita. On arrival, BP 156/84, HR 120, O2 sat 99% on RA, Afebrile. WBC 23.1. Creatinine 3.40, no previous labs for comparison. LFTs mildly elevated. CPK 4136. Urine Drug Screen positive for Marijuana. - Acute illicit drug ingestion - Probably Namita. - Will use Ativan, Haldol for acute agitation. - Rhabdomyolysis his CK level is improving from 4136 --> 87375 --> 32248 --> 05676.->7838->8288->6252 - Acute kidney injury with creatinine 3.4. today 1 Improved. chronic pain - Continue on Tramadol PRN and continue Acetaminophen PRN Full code. SCDs. Take a new CPK level at 1600 hours today if below 5000 will discharge Discharge Planning Once CK level below 5000 discharge South Shah MD Apr 19, 2017 2:24 pm
[2017-04-19 16:14] VITALS: BP 167/92; PULSE 50; RESP 18; TEMP 98.2; O2SAT 99
[2017-04-19 18:27] LABS: CKMB 8.5 NG/ML (0.5-3.6)
[2017-04-19 19:00] VITALS: BP 179/96; PULSE 50; RESP 18; TEMP 96; O2SAT 99
[2017-04-20] VITALS: BP 149/71; PULSE 60; RESP 16; TEMP 97.1; O2SAT 98
[2017-04-20] MEDS: SODIUM CHLOR 0.9% 1000 ML INJ 1,000 ML IV SCH ×2 (01:50→05:10)
[2017-04-20] MEDS: LORazepam 2 MG/ML VIAL IV PUSH PRN (06:02)
[2017-04-20 06:08] LABS: BICARBONATE 26.7 MEQ/L (21.0-32.0); POTASSIUM 3.6 MEQ/L (3.5-5.1)
[2017-04-20 06:39] LABS: CKMB 5.7 NG/ML (0.5-3.6)
[2017-04-20] MEDS: SODIUM CHLORIDE 0.9% FLUSH 10 ML FLUSH IV FLUSH SCH (07:28)
[2017-04-20] MEDS: DOCUSATE SODIUM 50 MG/SENNA 8.6 MG TAB PO SCH (07:28)
[2017-04-20 08:00] VITALS: BP 123/79; PULSE 52; RESP 18; TEMP 97; O2SAT 96
--- NOTE | 2017-04-20 08:17 | HHI.PR ---
Subjective Remarks Patient stable in his bedroom, followed due to Rhabdomyolysis, Acute kidney injury, unknown drug ingestion seen in the presence of [employer], explained we will follow CK levels if trending down but below 5000 will be discharge. no nausea, vomit or diarrhea, he wants to go. Seen in his bedroom and discussed with nurse Miss Garrett will perform again today a new CPK level at 1600 hours if below 5000 will discharge Home. No nausea, vomit or diarrhea the patient wants to go now. 04/20/17 Stable in his bedroom, he wants to go today and has a court appearance this morning, his Renal function remain on normal limit and his CPK levels are trending down, will need to continue drinking water and follow BMP and CK levels in 48 hours, given script for laboratory. and follow up with PCP. Objective Vital Signs Date Time Temp Pulse Resp B/P (MAP) Pulse Ox O2 Delivery O2 Flow Rate FiO2 04/20/17 00:00 97.1 60 16 149/71 (97) 98 04/19/17 21:01 Room Air 04/19/17 19:00 96.0 50 18 179/96 (123) 99 04/19/17 16:14 98.2 50 18 167/92 (117) 99 04/19/17 11:46 97.7 50 18 129/76 (93) 100 I/O 04/19/17 04/19/17 04/19/17 04/20/17 04/20/17 04/20/17 07:00 15:00 23:00 07:00 15:00 23:00 Intake Total 7271 ml 1960 ml 720 ml 4944 ml Output Total 1000 ml 850 ml 1100 ml Balance 7271 ml 960 ml -130 ml 3844 ml Intake Oral 480 ml 960 ml 720 ml 720 ml IV Total 6791 ml 1000 ml 4224 ml Output Urine Total 1000 ml 850 ml 1100 ml # Voids 3 # Bowel Movements 0 0 Result Diagram: 04/17/17 0656 04/20/17518 Imaging No imaging studies performed. Procedures None Other Results Laboratory Tests Test 04/16/17 02:35 04/17/17 06:56 04/20/17 05:19 Urine Color YELLOW Urine Turbidity CLOUDY Urine pH 5.5 Urine Specific [place] 1.017 Urine Protein 100 mg/dL Urine Glucose (UA) NEG mg/dL Urine Ketones TRACE mg/dL Urine Occult Blood LARGE Urine Nitrite NEG Urine Bilirubin NEG Urine Urobilinogen 2.0 MG/DL Urine Leukocyte Esterase NEG Urine RBC 9 /hpf Urine WBC 11 /hpf Urine WBC Clumps RARE Urine Squamous Epithelial Cells 3 /hpf Urine Amorphous Sediment RARE Urine Bacteria FEW /hpf Urine Hyaline Casts 124 /lpf Urine Granular Casts 15 /lpf Urine Mucus FEW /lpf Microscopic Urinalysis Comment CULTURE INDICATED Urine Opiates Screen NEG Urine Barbiturates Screen NEG Urine Amphetamines Screen NEG Urine Benzodiazepines Screen NEG Urine Cocaine Screen NEG Urine Cannabinoids Screen POS White Blood Count 7.5 TH/MM3 Red Blood Count 3.99 MIL/MM3 Hemoglobin 12.6 GM/DL Hematocrit 37.3 % Mean Corpuscular Volume 93.6 FL Mean Corpuscular Hemoglobin 31.6 PG Mean Corpuscular Hemoglobin Concent 33.8 % Red Cell Distribution Width 14.2 % Platelet Count 231 TH/MM3 Mean Platelet Volume 7.0 FL Neutrophils (%) (Auto) 66.3 % Lymphocytes (%) (Auto) 24.3 % Monocytes (%) (Auto) 8.7 % Eosinophils (%) (Auto) 0.4 % Basophils (%) (Auto) 0.3 % Neutrophils # (Auto) 5.0 TH/MM3 Lymphocytes # (Auto) 1.8 TH/MM3 Monocytes # (Auto) 0.7 TH/MM3 Eosinophils # (Auto) 0.0 TH/MM3 Basophils # (Auto) 0.0 TH/MM3 CBC Comment DIFF FINAL Differential Comment Blood Urea Nitrogen 14 MG/DL 8 MG/DL Creatinine 1.19 MG/DL 1.02 MG/DL Random Glucose 83 MG/DL 82 MG/DL Total Protein 6.4 GM/DL Albumin 2.9 GM/DL Calcium Level 8.0 MG/DL 7.9 MG/DL Alkaline Phosphatase 55 U/L Aspartate Amino Transf (AST/SGOT) 394 U/L Alanine Aminotransferase (ALT/SGPT) 101 U/L Total Bilirubin 0.9 MG/DL Sodium Level 141 MEQ/L 140 MEQ/L Potassium Level 4.3 MEQ/L 3.6 MEQ/L Chloride Level 111 MEQ/L 107 MEQ/L Carbon Dioxide Level 21.1 MEQ/L 26.7 MEQ/L Anion Gap 6 MEQ/L Estimat Glomerular Filtration Rate 99 ML/MIN Total Creatine Kinase 5063 U/L Creatine Kinase MB 5.7 NG/ML Creatine Kinase MB % 0.1 % Objective Remarks GENERAL: Alert, oriented x 3, no acute distress. SKIN: Warm and dry. HEAD: Normocephalic. EYES: No scleral icterus. No injection or drainage. NECK: Supple, trachea midline. No JVD or lymphadenopathy. CARDIOVASCULAR: Regular rate and rhythm without murmurs, gallops, or rubs. RESPIRATORY: Breath sounds equal bilaterally. No accessory muscle use. GASTROINTESTINAL: Abdomen soft, non-tender, nondistended. MUSCULOSKELETAL: No cyanosis, or edema. BACK: Nontender without obvious deformity. No CVA tenderness. Medications and IVs Current Medications Medications (Trade) Dose Ordered Sig/Tiara Route Start Time Stop Time Status Last Admin (NS Flush) 2 ml UNSCH PRN IV FLUSH 04/16/17 04:30 04/20/17 06:02 (NS Flush) 2 ml BID IV FLUSH 04/16/17 09:00 04/19/17 21:01 (Zofran Inj) 4 mg Q6H PRN IVP 04/16/17 04:30 (Tylenol) 650 mg Q6H PRN PO 04/16/17 04:30 04/16/17 09:08 (Martine-Colace) 1 tab BID PO 04/16/17 09:00 04/17/17 23:08 (Milk Of Magnesia Liq) 30 ml Q12H PRN PO 04/16/17 04:30 (Senokot) 17.2 mg Q12H PRN PO 04/16/17 04:30 (Dulcolax Supp) 10 mg DAILY PRN RECTAL 04/16/17 04:30 (Lactulose Liq) 30 ml DAILY PRN PO 04/16/17 04:30 (Ativan Inj) 1 mg Q2H PRN IV PUSH 04/16/17 04:30 04/20/17 06:02 Sodium Chloride 1,000 ml @ 300 mls/hr Q3H20M IV 04/16/17 04:30 04/20/17 05:10 (Haldol Inj) 2 mg Q6H PRN IM 04/16/17 11:30 (Ultram) 50 mg Q8H PRN PO 04/17/17 13:00 04/17/17 12:42 A/P Assessment and Plan This is a 41-year-old male with no apparent PMH was brought to the ER by Police after he was found standing in middle of the street after ingesting unknown drug , later admitted using Namita. On arrival, BP 156/84, HR 120, O2 sat 99% on RA, Afebrile. WBC 23.1. Creatinine 3.40, no previous labs for comparison. LFTs mildly elevated. CPK 4136. Urine Drug Screen positive for Marijuana. - Acute illicit drug ingestion - Probably Namita. - Will use Ativan, Haldol for acute agitation. - Rhabdomyolysis his CK level is improving from 4136 --> 63391 --> 52721 --> 69365.->7838->8288->6252->5063 - Acute kidney injury Improved. chronic pain - Continue on Tramadol PRN and continue Acetaminophen PRN Full code. SCDs. seen in his bedroom, stable he has a Court Appearance and probable will go to Care Home he receives a script for BMP and CK level to be taken in 48 hours and show result to PCP also was recommended if any difficulty to take the test to come to ER to be performed. Given recommendations in from of the [facility]rections facility office. to drink plenty of Water and avoid any drug Discharge Planning Discharge now and follow BMP and CK level in 48 hours. South Shah MD Apr 20, 2017 8:17 am
--- NOTE | 2017-04-20 08:23 | HHI.DS ---
Discharge Summary Admission Date Apr 16, 2017 at 4:26 am Discharge Date: Apr 20, 2017 Admitting Diagnosis rhabdomyolisis with DEANNA (1) Drug ingestion ICD Code: T50.901A - Poisoning by unspecified drugs, medicaments and biological substances, accidental (unintentional), initial encounter Diagnosis: Principal (2) Rhabdomyolysis ICD Code: M62.82 - Rhabdomyolysis Diagnosis: Principal Status: Acute (3) DEANNA (acute kidney injury) ICD Code: N17.9 - Acute kidney failure, unspecified Diagnosis: Principal Status: Acute Procedures None Brief History - From Admission This is a 41-year-old male with no apparent PMH was brought to the ER by Police after he was found standing in middle of the street after ingesting unknown drug. Pt resisting arrest, currently under Police Custody. Pt later admitted to [facility]. On arrival, BP 156/84, HR 120, O2 sat 99% on RA, Afebrile. WBC 23.1. Creatinine 3.40, no previous labs for comparison. LFTs mildly elevated. CPK 4136. Urine Drug Screen positive for Marijuana. Significant agitation while in ER requiring Ativan/Versed. CBC/BMP: 04/17/17 0656 04/20/17 0519 Significant Findings Laboratory Tests Test 04/18/17 07:06 04/18/17 16:54 04/19/17 06:16 04/19/17 17:10 Calcium Level 7.8 MG/DL (8.5-10.1) 8.0 MG/DL (8.5-10.1) Chloride Level 111 MEQ/L (98-107) 109 MEQ/L (98-107) Total Creatine Kinase 7838 U/L (39-308) 8288 U/L (39-308) 6252 U/L (39-308) 6727 U/L (39-308) Creatine Kinase MB 18.7 NG/ML (0.5-3.6) 15.5 NG/ML (0.5-3.6) 9.2 NG/ML (0.5-3.6) 8.5 NG/ML (0.5-3.6) Test 04/20/17 05:19 Calcium Level 7.9 MG/DL (8.5-10.1) Total Creatine Kinase 5063 U/L (39-308) Creatine Kinase MB 5.7 NG/ML (0.5-3.6) Imaging No imaging studies. PE at Discharge GENERAL: Alert, oriented x 3, no acute distress. SKIN: Warm and dry. HEAD: Normocephalic. EYES: No scleral icterus. No injection or drainage. NECK: Supple, trachea midline. No JVD or lymphadenopathy. CARDIOVASCULAR: Regular rate and rhythm without murmurs, gallops, or rubs. RESPIRATORY: Breath sounds equal bilaterally. No accessory muscle use. GASTROINTESTINAL: Abdomen soft, non-tender, nondistended. MUSCULOSKELETAL: No cyanosis, or edema. BACK: Nontender without obvious deformity. No CVA tenderness. Hospital Course Patient stable in his bedroom, followed due to Rhabdomyolysis, Acute kidney injury, unknown drug ingestion seen in the presence of [employer], explained we will follow CK levels if trending down but below 5000 will be discharge. no nausea, vomit or diarrhea, he wants to go. Seen in his bedroom and discussed with nurse Miss Garrett will perform again today a new CPK level at 1600 hours if below 5000 will discharge Home. No nausea, vomit or diarrhea the patient wants to go now. 04/20/17 Stable in his bedroom, he wants to go today and has a court appearance this morning, his Renal function remain on normal limit and his CPK levels are trending down, will need to continue drinking water and follow BMP and CK levels in 48 hours, given script for laboratory. and follow up with PCP. Assessment and Plan This is a 41-year-old male with no apparent PMH was brought to the ER by Police after he was found standing in middle of the street after ingesting unknown drug , later admitted using Namita. On arrival, BP 156/84, HR 120, O2 sat 99% on RA, Afebrile. WBC 23.1. Creatinine 3.40, no previous labs for comparison. LFTs mildly elevated. CPK 4136. Urine Drug Screen positive for Marijuana. - Acute illicit drug ingestion - Probably Namita. - Will use Ativan, Haldol for acute agitation. - Rhabdomyolysis his CK level is improving from 4136 --> 28775 --> --> 32205.->7838->8288->0302->5063 - Acute kidney injury Improved. chronic pain - Continue on Tramadol PRN and continue Acetaminophen PRN Full code. SCDs. seen in his bedroom, stable he has a Court Appearance and probable will go to [facility] he receives a script for BMP and CK level to be taken in 48 hours and show result to PCP also was recommended if any difficulty to take the test to come to ER to be performed. Given recommendations in from of the Corrections facility office. to drink plenty of Water and avoid any drug Discussed with Patient, [facility] and Nurse Miss Almanzar appreciated. Discharge Planning Discharge now and follow BMP and CK level in 48 hours. Pt Condition on Discharge: Good Discharge Disposition: Discharge Home Discharge Time: > 30 minutes Discharge Instructions DIET: Follow Instructions for: As Tolerated, No Restrictions Activities you can perform: Regular-No Restrictions South Shah MD Apr 20, 2017 8:23 am
== END 2017-04-20 09:33 | DRG 918 ==
LOC: NEPE 02:06 → NEDA 04:26 → N06B 05:15
PROVIDERS: ADMIT Internal Medicine; ATTEND Internal Medicine
DX: T50.994A Poisoning by other drugs, medicaments and biological substances, undetermined, initial encounter (principal); N17.9 Acute kidney failure, unspecified; M62.82 Rhabdomyolysis; R00.0 Tachycardia, unspecified; D72.829 Elevated white blood cell count, unspecified
CPT/HCPCS: 80048; 80053; 80307; 81001; 82550; 82552; 85025; 87086; 96361; 96374; 96375; J1630; J2060; J2250; J7030; J7040